=== PATIENT | female | born 1935 | race Caucasian/White ===

== ENCOUNTER 2019-06-18 11:23 | Emergency (ER) | payer MEDICARE, BC ==
--- NOTE | 2019-06-18 11:35 | EDM.PDOC ---
ED HPI GENERAL MEDICAL PROBLEM - General Chief Complaint: Syncope Stated Complaint: ER Time Seen by Provider: 06/18/19 11:35 - History of Present Illness INITIAL COMMENTS - FREE TEXT/NARRATIVE: Pt presents via ems for syncopal episode. Pt with hx of syncope in past has pacemaker in place for a fib. At this time PT ao x 3 with no complaints. Associated Symptoms: Reports: Syncope - Related Data Allergies Allergy/AdvReac Type Severity Reaction Status Date / Time No Known Allergies Allergy Verified 06/18/19 12:32 Home Meds: Home Meds . [No Known Home Meds] 06/18/19 [History] ED ROS GENERAL - Review of Systems Review Of Systems: See Below Constitutional: Reports: No Symptoms HEENT: Reports: No Symptoms Respiratory: Reports: No Symptoms Cardiovascular: Reports: No Symptoms Endocrine: Reports: No Symptoms GI/Abdominal: Reports: No Symptoms : Reports: No Symptoms Musculoskeletal: Reports: No Symptoms Skin: Reports: No Symptoms ED EXAM, GENERAL - Physical Exam Exam: See Below Free Text/Narrative:: ua noted leuk in urine with some wbc, low H&H unk pt baseline. ekg noted pased rhythem, pt with no chest pain, no carotid bruit. Exam Limited By: No Limitations General Appearance: Alert Ears: Normal External Exam, Normal Canal Nose: Normal Inspection, Normal Mucosa Throat/Mouth: Normal Inspection Head: Atraumatic, Normocephalic Neck: Normal Inspection, Supple, Non-Tender, Full Range of Motion Respiratory/Chest: No Respiratory Distress, Lungs Clear Cardiovascular: Normal Peripheral Pulses, Other (paced rhythem vent ) GI/Abdominal: Normal Bowel Sounds, Soft, Non-Tender, No Organomegaly, No Distention, No Abnormal Bruit, No Mass Extremities: Normal Inspection Neurological: Alert, Oriented Course - Vital Signs Last Recorded V/S: Last Vital Signs Temp 35.8 C 06/18/19 11:59 Pulse 80 06/18/19 11:59 Resp 16 06/18/19 11:59 BP 98/40 L 06/18/19 11:59 Pulse Ox 97 06/18/19 11:59 - Orders/Labs/Meds Orders: Active Orders 24 hr Category Date Time Status EKG 12 Lead [EKG Documentation Completion] [RC] STAT Care 06/18/19 11:36 Ordered CULTURE URINE [RM] Stat Lab 06/18/19 11:55 Received Sodium Chloride 0.9% [Saline Flush] Med 06/18/19 11:37 Ordered 10 ml FLUSH ASDIRECTED PRN Peripheral IV Insertion Adult [OM.PC] Routine Oth 06/18/19 11:37 Ordered Medication Orders Sodium Chloride (Saline Flush) 10 ml FLUSH ASDIRECTED PRN PRN Reason: Keep Vein Open Labs: Laboratory Tests 06/18/19 06/18/19 06/18/19 Range/Units 11:50 11:50 11:50 WBC 3.7 L (4.0-10.0) x10^3/uL RBC 2.31 L (4.00-5.50) x10^6/uL Hgb 9.0 L (12.0-16.0) g/dL Hct 27.2 L (33.0-47.0) % MCV 117.7 H (78.0-93.0) fL MCH 39.0 H (26.0-32.0) pg MCHC 33.1 (32.0-36.0) g/dL RDW Coeff of Amber 13.1 (10.0-15.0) % Plt Count 99 L (130-400) x10^3/uL Neut % (Auto) 41.6 L (50.0-80.0) % Lymph % (Auto) 31.9 (25.0-50.0) % [place] % (Auto) 20.2 H (2.0-11.0) % Eos % (Auto) 4.9 H (0.0-4.0) % Baso % (Auto) 1.4 H (0.2-1.2) % PT 24.5 H (10.0-12.8) SEC INR 2.2 (2.0-3.5) Sodium 144 (69-191) mmol/L Potassium 4.0 (1.5-9.9) mmol/L Chloride 105 (54-184) mmol/L Carbon Dioxide 29 (21-32) mmol/L Anion Gap 14.0 (10-20) mmol/L BUN 20 H (7-18) mg/dL Creatinine 1.1 H (0.55-1.02) mg/dL Est Cr Clr Drug Dosing 29.24 mL/min Estimated GFR (MDRD) 47 Glucose 106 (74-106) mg/dL Calcium 8.7 (8.5-10.1) mg/dL Urine Color (YELLOW) Urine Appearance (CLEAR) Urine pH (5.0-8.0) Ur Specific [place] Urine Protein (NEGATIVE) mg/dL Urine Glucose (UA) (NEGATIVE) mg/dL Urine Ketones (NEGATIVE) mg/dL Urine Occult Blood (NEGATIVE) Urine Nitrite (NEGATIVE) Urine Bilirubin (NEGATIVE) Urine Urobilinogen (0.2) EU/dL Ur Leukocyte Esterase (NEGATIVE) Urine RBC (NOT SEEN) /HPF Urine WBC (NOT SEEN) /HPF Ur Squamous Epith Cells (NEGATIVE) /HPF Urine Bacteria (NEGATIVE) /HPF Urine Mucus (NEGATIVE) /LPF 06/18/19 Range/Units 11:55 WBC (4.0-10.0) x10^3/uL RBC (4.00-5.50) x10^6/uL Hgb (12.0-16.0) g/dL Hct (33.0-47.0) % MCV (78.0-93.0) fL MCH (26.0-32.0) pg MCHC (32.0-36.0) g/dL RDW Coeff of Amber (10.0-15.0) % Plt Count (130-400) x10^3/uL Neut % (Auto) (50.0-80.0) % Lymph % (Auto) (25.0-50.0) % [place] % (Auto) (2.0-11.0) % Eos % (Auto) (0.0-4.0) % Baso % (Auto) (0.2-1.2) % PT (10.0-12.8) SEC INR (2.0-3.5) Sodium (69-191) mmol/L Potassium (1.5-9.9) mmol/L Chloride (54-184) mmol/L Carbon Dioxide (21-32) mmol/L Anion Gap (10-20) mmol/L BUN (7-18) mg/dL Creatinine (0.55-1.02) mg/dL Est Cr Clr Drug Dosing mL/min Estimated GFR (MDRD) Glucose (74-106) mg/dL Calcium (8.5-10.1) mg/dL Urine Color Yellow (YELLOW) Urine Appearance Slightly cloudy H (CLEAR) Urine pH 6.0 (5.0-8.0) Ur Specific [place] 1.010 Urine Protein Negative (NEGATIVE) mg/dL Urine Glucose (UA) Negative (NEGATIVE) mg/dL Urine Ketones Negative (NEGATIVE) mg/dL Urine Occult Blood Trace-intact H (NEGATIVE) Urine Nitrite Negative (NEGATIVE) Urine Bilirubin Negative (NEGATIVE) Urine Urobilinogen 0.2 (0.2) EU/dL Ur Leukocyte Esterase Trace H (NEGATIVE) Urine RBC 5-10 H (NOT SEEN) /HPF Urine WBC 5-10 H (NOT SEEN) /HPF Ur Squamous Epith Cells Few H (NEGATIVE) /HPF Urine Bacteria Few H (NEGATIVE) /HPF Urine Mucus Occasional H (NEGATIVE) /LPF Meds: Medications Generic Name Dose Route Start Last Admin Trade Name Freq PRN Reason Stop Dose Admin Sodium Chloride 10 ml 06/18/19 11:37 Saline Flush FLUSH ASDIRECTED PRN Keep Vein Open Departure - Departure Time of Disposition: 12:43 Disposition: Home, Self-Care 01 Condition: Good Clinical Impression: UTI (urinary tract infection) - Discharge Information Instructions: Urinary Tract Infection, Adult Referrals: Naeem Hurd MD [Primary Care Provider] - Forms: ED Department Discharge - My Orders Last 24 Hours: My Active Orders 06/18/19 11:36 EKG 12 Lead [EKG Documentation Completion] [RC] STAT 06/18/19 11:37 Sodium Chloride 0.9% [Saline Flush] 10 ml FLUSH ASDIRECTED PRN Peripheral IV Insertion Adult [OM.PC] Routine 06/18/19 11:55 CULTURE URINE [RM] Stat - Assessment/Plan Last 24 Hours: My Active Orders 06/18/19 11:36 EKG 12 Lead [EKG Documentation Completion] [RC] STAT 06/18/19 11:37 Sodium Chloride 0.9% [Saline Flush] 10 ml FLUSH ASDIRECTED PRN Peripheral IV Insertion Adult [OM.PC] Routine 06/18/19 11:55 CULTURE URINE [RM] Stat
[2019-06-18] MEDS ORDERED: Sodium Chloride 0.9% 10 ML Syringe FLUSH PRN (11:37)
== END 2019-06-18 12:51 | disposition home or self-care (01) ==
LOC: VM.ED 11:23
DX: N39.0 Urinary tract infection, site not specified (principal)
CPT/HCPCS: 36415; 80048; 81001; 85025; 85610; 87086; 93005; 99284-25

== ENCOUNTER 2020-07-14 12:27 | Emergency (ER) | payer MEDICARE, BC ==
[2020-07-14 13:40] LABS: CHLORIDE,CL 101 mmol/L (98-107); SODIUM,NA 137 mmol/L (136-145)
[2020-07-14 13:42] LABS: ANION GAP 15.3 mmol/L (10-20)
--- NOTE | 2020-07-14 14:39 | EDM.PDOC ---
ED HPI GENERAL MEDICAL PROBLEM - General Chief Complaint: General Stated Complaint: Weakness \ Covid Positive Time Seen by Provider: 07/14/20 12:50 Source of Information: Reports: Patient History Limitations: Reports: No Limitations - History of Present Illness INITIAL COMMENTS - FREE TEXT/NARRATIVE: Patient comes emergency department today from home by ambulance with complaints of weakness as well as Covid symptoms. This patient was diagnosed on 07/04/2020 with COVID-19. She has been quarantining at home with her who is also been positive for Covid. She has been complaining of weakness for about the past 2 weeks. It is slowly been getting worse over the past 2 weeks. She has had diarrhea the past couple of days but it is improved today. She has had no black or tarry stools. No hematuria dysuria or urinary sometimes. She really does not complain of any shortness of breath cough or difficulty breathing. She denies any pain in her chest pressure to her chest. She has had an intermittent fever. She has lost her taste and smell. She has drinks about 1 glass of water a day. She has not eaten for the past couple of days. She is very weak she has not fallen and hit her head. - Related Data Allergies Allergy/AdvReac Type Severity Reaction Status Date / Time No Known Allergies Allergy Verified 07/14/20 19:26 Home Meds: Home Meds Aspirin 81 mg PO DAILY 07/14/20 [History] Cholecalciferol (Vitamin D3) [Vitamin D3] 1,000 unit PO DAILY 07/14/20 [History] Escitalopram [Lexapro] 10 mg PO DAILY 07/14/20 [History] Furosemide [Lasix] 20 mg PO DAILY 07/14/20 [History] Warfarin Sodium [Jantoven] 5 mg PO ASDIRECTED 07/14/20 [History] atorvaSTATin [Lipitor] 40 mg PO DAILY 07/14/20 [History] Past Medical History Cardiovascular History: Reports: Pacemaker ED ROS GENERAL - Review of Systems Review Of Systems: See Below ED EXAM, GENERAL - Physical Exam Exam: See Below Exam Limited By: No Limitations General Appearance: Alert, WD/WN, No Apparent Distress Eye Exam: Bilateral Eye: EOMI Ears: Normal External Exam Nose: Normal Inspection Throat/Mouth: Normal Inspection, Normal Lips, Normal Voice Head: Atraumatic, Normocephalic Neck: Normal Inspection, Supple, Non-Tender, Full Range of Motion Respiratory/Chest: No Respiratory Distress, Lungs Clear, Normal Breath Sounds, Chest Non-Tender Cardiovascular: Normal Peripheral Pulses, Regular Rate, Rhythm Peripheral Pulses: 2+: Radial (L), Radial (R), Posterior Tibial (L), Posterior Tibial (R), Dorsalis Pedis (L), Dorsalis Pedis (R) GI/Abdominal: Normal Bowel Sounds, Soft, Non-Tender (Female) Exam: Deferred Rectal (Female) Exam: Deferred Back Exam: Normal Inspection, Full Range of Motion Extremities: Normal Inspection, Normal Range of Motion, Non-Tender, Normal Capillary Refill Neurological: Alert, Oriented, No Motor/Sensory Deficits Skin Exam: Dry, Intact, Cool, Pallor (He is very pale especially her conjunctive is very pale.) #1 Interpretation EKG Date: 07/14/20 Time: 12:55 Rhythm: A-Fib Rate (Beats/Min): 100 [place]: Normal P-Wave: Present QRS: Normal ST-T: Normal QT: Normal Comparison: No Change Course - Vital Signs Last Recorded V/S: Last Vital Signs Temp 100.3 F 07/14/20 14:58 Pulse 88 07/14/20 19:58 Resp 20 07/14/20 19:58 BP 118/68 07/14/20 19:58 Pulse Ox 98 07/14/20 19:38 - Orders/Labs/Meds Orders: Active Orders 24 hr Category Date Time Status EKG Documentation Completion [RC] STAT Care 07/14/20 12:35 Active CULTURE BLOOD [BC] Stat Lab 07/14/20 12:45 Received CULTURE BLOOD [BC] Stat Lab 07/14/20 12:55 Received FOLATE [REF] Stat Lab 07/14/20 12:45 Received RED BLOOD CELLS LP [BBK] Stat Lab 07/14/20 12:45 Results TRANSFERRIN [REF] Stat Lab 07/14/20 12:45 Received TROPONIN I [CHEM] Timed Lab 07/14/20 20:29 Ordered TYPE AND SCREEN [BBK] Stat Lab 07/14/20 12:45 Results VITAMIN B12 [REF] Stat Lab 07/14/20 12:45 Received Blood Culture x2 Reflex Set [OM.PC] Stat Oth 07/14/20 12:36 Ordered Blood Transfusion Reflex Orders [OM.PC] Routine Oth 07/14/20 13:14 Ordered Labs: Laboratory Tests 07/14/20 07/14/20 07/14/20 Range/Units 12:45 12:45 12:45 WBC 7.8 (4.0-10.0) x10^3/uL RBC 1.55 L (4.00-5.50) x10^6/uL Hgb 6.0 L* D (12.0-16.0) g/dL Hct 18.6 L (33.0-47.0) % MCV 120.0 H (78.0-93.0) fL MCH 38.7 H (26.0-32.0) pg MCHC 32.3 (32.0-36.0) g/dL RDW Coeff of Amber 15.9 H (10.0-15.0) % Plt Count 176 D (130-400) x10^3/uL Add Manual Diff Yes Neutrophils % (Manual) 84 H (50-80) % Lymphocytes % (Manual) 7 L (25-50) % Monocytes % (Manual) 8 (2-11) % Basophils % (Manual) 1 (0-1) % Platelet Estimate Adequate Poikilocytosis 1+ slight H Anisocytosis 1+ slight H Macrocytosis 3+ marked H Tear Drop Cells 1+ slight H Ovalocytes 1+ slight H Acanthocytes (Spur) 2+ moderate H Schistocytes Rare PT 51.8 H D (9.5-12.3) SEC INR 5.1 H* (2.0-3.5) APTT 52.0 H (25.6-32.8) SEC D-Dimer, Quantitative 0.30 (<=0.58) mg/LFEU Sodium 137 (136-145) mmol/L Potassium 3.3 L (3.5-5.1) mmol/L Chloride 101 (98-107) mmol/L Carbon Dioxide 24 (21-32) mmol/L Anion Gap 15.3 (10-20) mmol/L BUN 20 H (7-18) mg/dL Creatinine 1.2 H (0.55-1.02) mg/dL Est Cr Clr Drug Dosing TNP Estimated GFR (MDRD) 43 Glucose 117 H (74-106) mg/dL Lactic Acid (0.4-2.0) mmol/L Calcium 8.0 L (8.5-10.1) mg/dL Corrected Calcium 8.64 (8.5-10.1) mg/dL Magnesium 1.7 L (1.8-2.4) mg/dL Iron (50-170) ug/dL TIBC (250-450) ug/dL % Saturation (20.0-50.0) % Ferritin (8-252) ng/mL Total Bilirubin 1.0 (0.2-1.0) mg/dL AST 35 (15-37) U/L ALT 21 (14-59) U/L Alkaline Phosphatase 69 (46-116) U/L Lactate Dehydrogenase 309 H (81-234) U/L Troponin I 0.507 H* (<=0.056) ng/mL C-Reactive Protein 7.4 H (<=0.9) mg/dL Total Protein 6.8 (6.4-8.2) g/dL Albumin 3.2 L (3.4-5.0) g/dL Globulin 3.6 Albumin/Globulin Ratio 0.89 Ethyl Alcohol (0-3) mg/dL Blood Type Gel Antibody Screen Crossmatch 07/14/20 07/14/20 07/14/20 Range/Units 12:45 12:45 12:45 WBC (4.0-10.0) x10^3/uL RBC (4.00-5.50) x10^6/uL Hgb (12.0-16.0) g/dL Hct (33.0-47.0) % MCV (78.0-93.0) fL MCH (26.0-32.0) pg MCHC (32.0-36.0) g/dL RDW Coeff of Amber (10.0-15.0) % Plt Count (130-400) x10^3/uL Add Manual Diff Neutrophils % (Manual) (50-80) % Lymphocytes % (Manual) (25-50) % Monocytes % (Manual) (2-11) % Basophils % (Manual) (0-1) % Platelet Estimate Poikilocytosis Anisocytosis Macrocytosis Tear Drop Cells Ovalocytes Acanthocytes (Spur) Schistocytes PT (9.5-12.3) SEC INR (2.0-3.5) APTT (25.6-32.8) SEC D-Dimer, Quantitative (<=0.58) mg/LFEU Sodium (136-145) mmol/L Potassium (3.5-5.1) mmol/L Chloride (98-107) mmol/L Carbon Dioxide (21-32) mmol/L Anion Gap (10-20) mmol/L BUN (7-18) mg/dL Creatinine (0.55-1.02) mg/dL Est Cr Clr Drug Dosing Estimated GFR (MDRD) Glucose (74-106) mg/dL Lactic Acid 1.3 (0.4-2.0) mmol/L Calcium (8.5-10.1) mg/dL Corrected Calcium (8.5-10.1) mg/dL Magnesium (1.8-2.4) mg/dL Iron (50-170) ug/dL TIBC (250-450) ug/dL % Saturation (20.0-50.0) % Ferritin 871 H (8-252) ng/mL Total Bilirubin (0.2-1.0) mg/dL AST (15-37) U/L ALT (14-59) U/L Alkaline Phosphatase (46-116) U/L Lactate Dehydrogenase (81-234) U/L Troponin I (<=0.056) ng/mL C-Reactive Protein (<=0.9) mg/dL Total Protein (6.4-8.2) g/dL Albumin (3.4-5.0) g/dL Globulin Albumin/Globulin Ratio Ethyl Alcohol (0-3) mg/dL Blood Type O POSITIVE Gel Antibody Screen Negative Crossmatch See Detail 07/14/20 07/14/20 07/14/20 Range/Units 12:45 12:45 16:30 WBC (4.0-10.0) x10^3/uL RBC (4.00-5.50) x10^6/uL Hgb (12.0-16.0) g/dL Hct (33.0-47.0) % MCV (78.0-93.0) fL MCH (26.0-32.0) pg MCHC (32.0-36.0) g/dL RDW Coeff of Amber (10.0-15.0) % Plt Count (130-400) x10^3/uL Add Manual Diff Neutrophils % (Manual) (50-80) % Lymphocytes % (Manual) (25-50) % Monocytes % (Manual) (2-11) % Basophils % (Manual) (0-1) % Platelet Estimate Poikilocytosis Anisocytosis Macrocytosis Tear Drop Cells Ovalocytes Acanthocytes (Spur) Schistocytes PT (9.5-12.3) SEC INR (2.0-3.5) APTT (25.6-32.8) SEC D-Dimer, Quantitative (<=0.58) mg/LFEU Sodium (136-145) mmol/L Potassium (3.5-5.1) mmol/L Chloride (98-107) mmol/L Carbon Dioxide (21-32) mmol/L Anion Gap (10-20) mmol/L BUN (7-18) mg/dL Creatinine (0.55-1.02) mg/dL Est Cr Clr Drug Dosing Estimated GFR (MDRD) Glucose (74-106) mg/dL Lactic Acid (0.4-2.0) mmol/L Calcium (8.5-10.1) mg/dL Corrected Calcium (8.5-10.1) mg/dL Magnesium (1.8-2.4) mg/dL Iron 41 L (50-170) ug/dL TIBC 202 L (250-450) ug/dL % Saturation 20.3 (20.0-50.0) % Ferritin (8-252) ng/mL Total Bilirubin (0.2-1.0) mg/dL AST (15-37) U/L ALT (14-59) U/L Alkaline Phosphatase (46-116) U/L Lactate Dehydrogenase (81-234) U/L Troponin I 2.571 H* (<=0.056) ng/mL C-Reactive Protein (<=0.9) mg/dL Total Protein (6.4-8.2) g/dL Albumin (3.4-5.0) g/dL Globulin Albumin/Globulin Ratio Ethyl Alcohol < 3 (0-3) mg/dL Blood Type Gel Antibody Screen Crossmatch Meds: Medications Discontinued Medications Generic Name Dose Route Start Last Admin Trade Name Freq PRN Reason Stop Dose Admin Pantoprazole Sodium 80 mg 07/14/20 18:09 07/14/20 18:39 Protonix Iv IVPUSH 07/14/20 18:10 80 mg ONETIME ONE Administration - Re-Assessments/Exams Free Text/Narrative Re-Assessment/Exam: 07/14/20 She does requiring about 2 L of oxygen to keep her oxygen saturation above 92%. She is about 85 to 86% percent on room air. Her blood pressure is a little bit labile at about 100 systolically. LR was initiated 250 mill bolus and then 125 an hour. Her hemoglobin came back at 6.0. With interestingly her MCV and MCH is actually high. She was typed and screened for 2 units and 1 unit was initiated. She is not a patient typically of here and she is a patient of a independent clinic in [place]. She does relate that she has a history of anemia but typically her hemoglobin is 9-10. She denies any black or tarry stools. Not have any chest pain although her troponin is 0.507. We will repeat her troponin in the next 4 hours to evaluate if this is just cardiac strain or if there is truly some type of cardiac event happening. Her INR is 5.1 which is supratherapeutic. Her creatinine is 1.2. The patient rested comfortably over the next couple of hours and her repeat troponin surprisingly had a troponin of 2.571. She continues not to have any chest pain. I do not want to give her any aspirin with my concerns of a lower GI bleed with the anemia that she has with her hemoglobin. Given Protonix 80 mg IV bolus. I called and spoke with Dr. Barrios at [facility] in [facility] ER COURSE findings and concerns of ongoing covid as well as elevating Troponin no chest pain and severe anemia. He accepted the patient in transfer at this time with no new orders. I discussed the findings and the concerns with the patient. Her questions were answered she was comfortable with this plan and her questions are answered. Departure - Departure Time of Disposition: 18:34 Disposition: DC/Tfer to Acute Hospital 02 Clinical Impression: Elevated troponin, COVID-19 Anemia Qualifiers: Anemia type: unspecified type Qualified Code(s): D64.9 - Anemia, unspecified - Discharge Information Referrals: Naeem Hurd MD [Primary Care Provider] - Forms: ED Department Discharge, Interfacility Transfer [facility] Sepsis Event Note (ED) - Evaluation Sepsis Screening Result: Possible Sepsis Risk - Focused Exam Vital Signs: Vital Signs Temp Temp Pulse Resp BP Pulse Ox 07/14/20 19:58 88 20 118/68 07/14/20 19:38 94 26 H 119/77 98 07/14/20 16:56 89 16 120/62 07/14/20 15:41 102 H 16 102/57 L 07/14/20 15:19 100 20 109/52 L 07/14/20 15:04 89 18 103/56 L 07/14/20 14:58 100.3 F 90 16 104/57 L 97 07/14/20 14:04 97 29 H 112/61 07/14/20 13:34 94 26 H 103/56 L 07/14/20 12:40 100.9 F H 89 22 H 95/55 L 85 L - My Orders Last 24 Hours: My Active Orders 07/14/20 12:35 EKG Documentation Completion [RC] STAT 07/14/20 12:36 Blood Culture x2 Reflex Set [OM.PC] Stat 07/14/20 12:45 CULTURE BLOOD [BC] Stat FOLATE [REF] Stat RED BLOOD CELLS LP [BBK] Stat TRANSFERRIN [REF] Stat TYPE AND SCREEN [BBK] Stat VITAMIN B12 [REF] Stat 07/14/20 12:55 CULTURE BLOOD [BC] Stat 07/14/20 13:14 Blood Transfusion Reflex Orders [OM.PC] Routine 07/14/20 20:29 TROPONIN I [CHEM] Timed - Assessment/Plan Last 24 Hours: My Active Orders 07/14/20 12:35 EKG Documentation Completion [RC] STAT 07/14/20 12:36 Blood Culture x2 Reflex Set [OM.PC] Stat 07/14/20 12:45 CULTURE BLOOD [BC] Stat FOLATE [REF] Stat RED BLOOD CELLS LP [BBK] Stat TRANSFERRIN [REF] Stat TYPE AND SCREEN [BBK] Stat VITAMIN B12 [REF] Stat 07/14/20 12:55 CULTURE BLOOD [BC] Stat 07/14/20 13:14 Blood Transfusion Reflex Orders [OM.PC] Routine 07/14/20 20:29 TROPONIN I [CHEM] Timed
[2020-07-14] MEDS ORDERED: Pantoprazole 40 MG Vial IVPUSH ONE (18:09)
== END 2020-07-14 20:52 | disposition short-term general hospital (02) ==
LOC: VM.ED 12:27
DX: U07.1 COVID-19 (principal); D64.9 Anemia, unspecified; R79.89 Other specified abnormal findings of blood chemistry; Z79.82 Long term (current) use of aspirin; Z79.899 Other long term (current) drug therapy; Z79.01 Long term (current) use of anticoagulants
CPT/HCPCS: 36415; 36430; 80053; 80307; 82607; 82728; 82746; 83540; 83550; 83605; 83615; 83735; 84466; 84484; 85025; 85379; 85610; 85730; 86140; 86850; 86900; 86901; 86920; 86922; 87040; 93005; 93010; 96374; 99284; 99285; C9113; P9016

== ENCOUNTER 2020-07-25 11:29 | Inpatient (IN) | payer MEDICARE, BC ==
[2020-07-25] MEDS ORDERED: Acetaminophen 325 MG Tab PO PRN (14:09)
[2020-07-25] MEDS: Omeprazole 20 MG Cap.CR PO SCH (16:22)
--- NOTE | 2020-07-25 16:36 | PCM.HP.2 ---
H&P History of Present Illness - General Date of Service: 07/25/20 Admit Problem/Dx: Admission Diagnosis/Problem Admission Diagnosis/Problem Non-ST elevation (NSTEMI) myocardial infarction Source of Information: Patient History Limitations: Reports: No Limitations - History of Present Illness Initial Comments - Free Text/Narative: Mrs. Kovacs is an 84 yo female with PMH of CAD, a-fib, hypertension, CHF, mitral regurgitation, pulmonary hypertension, tricuspid regurgitation, hyperlipidemia, and stage 3 CKD who is admitted to [facility] for strengthening prior to returning home after an acute hospitalization in [place] for severe anemia, NSTEMI, and COVID. She was hospitalized in [place] 07/14-07/25 for these diagnoses. She did have a GI consult and had an evaluation for the cause of her anemia to include EGD, colonoscopy, and pill cam without any specific cause for her blood loss. She did have non-erosive gastropathy that is felt to possibly be the cause and she was treated with omeprazole. Cardiology was consulted and the patient declined catheterization. She did have an echocardiogram that showed an EF of 35% with global hypokinesis and what was determined to be a thrombus on the end of her right pacer wire. Blood cultures were negative. She was continued on her warfarin and plans are to follow-up with cardiology for further cares. Upon arrival to the floor, she states she is weak but otherwise ok. She has not had any shortness of breath or lightheadedness. No chest pain. She is just tired and weak. She has not had any fever or chills. She states her appetite is good and she can taste and smell without any issues. No issues with voiding or bowel movements. She has not had any pain. - Related Data Allergies/Adverse Reactions: Allergies Allergy/AdvReac Type Severity Reaction Status Date / Time No Known Allergies Allergy Verified 07/14/20 19:26 Home Medications: Home Meds Acetaminophen [Tylenol] 325 mg PO Q4HR PRN 07/14/20 [History] Cholecalciferol (Vitamin D3) [Vitamin D3] 25 mcg PO DAILY 07/14/20 [History] Escitalopram [Lexapro] 10 mg PO DAILY 07/14/20 [History] Warfarin Sodium [Jantoven] 5 mg PO ASDIRECTED 07/14/20 [History] atorvaSTATin [Lipitor] 40 mg PO DAILY 07/14/20 [History] Aspirin [Aspirin EC] 81 mg PO DAILY 07/25/20 [History] Cyanocobalamin (Vitamin B-12) [Vitamin B-12] 1,000 mcg PO ASDIRECTED 07/25/20 [History] Ferrous Sulfate 325 mg PO DAILY 07/25/20 [History] Metoprolol Tartrate 37.5 mg PO BID 07/25/20 [History] Omeprazole 20 mg PO BIDAC 07/25/20 [History] Ramipril [Altace] 5 mg PO DAILY 07/25/20 [History] Warfarin [Coumadin] 2.5 mg PO ASDIRECTED 07/25/20 [History] Past Medical History HEENT History: Reports: None Cardiovascular History: Reports: Afib, CAD, Heart Failure, High Cholesterol, Hypertension, Pacemaker, Stents, Other (See Below) Other Cardiovascular History: mitral vave regurgitation; coronary atherosclerosis; tricuspid valve regurgitation; chronic combined systolic and diastolic heart failure Respiratory History: Reports: None Gastrointestinal History: Reports: Other (See Below) Other Gastrointestinal History: gastric ulcer Genitourinary History: Reports: Other (See Below) Other Genitourinary History: stage 3 CKD Musculoskeletal History: Reports: None Neurological History: Reports: None Psychiatric History: Reports: None Endocrine/Metabolic History: Reports: Other (See Below) Other Endocrine/Metabolic History: unspecified hyperlipidemia Hematologic History: Reports: Anemia Oncologic (Cancer) History: Reports: Breast - Infectious Disease History Infectious Disease History: Reports: Chicken Pox - Past Surgical History Cardiovascular Surgical History: Reports: Coronary Artery Bypass, Coronary Artery Stent, Pacer Other Cardiovascular Surgeries/Procedures: CABG GI Surgical History: Reports: Colonoscopy, EGD, Other (See Below) Other GI Surgeries/Procedures: Video capsule camera procedure Female Surgical History: Reports: Other (See Below) Other Female Surgeries/Procedures: malignant neoplasm of breast; left breast lumpectomy Social & Family History - Family History Family Medical History: No Pertinent Family History - Tobacco Use Tobacco Use Status *Q: Never Tobacco User - Caffeine Use Caffeine Use: Reports: Soda - Alcohol Use Alcohol Use History: No Alcohol Use in Last Twelve Months: No - Recreational Drug Use Recreational Drug Use: No - Living Situation & Occupation Living situation: Reports: , with Family Occupation: Retired H&P Review of Systems - Review of Systems: Review Of Systems: See Below General: Reports: Weakness, Fatigue. Denies: Fever, Chills HEENT: Reports: No Symptoms Pulmonary: Reports: No Symptoms Cardiovascular: Reports: No Symptoms Gastrointestinal: Reports: No Symptoms Genitourinary: Reports: No Symptoms Musculoskeletal: Reports: No Symptoms Skin: Reports: No Symptoms Psychiatric: Reports: No Symptoms Neurological: Reports: No Symptoms Hematologic/Lymphatic: Reports: No Symptoms Exam - Exam Exam: See Below - Vital Signs Vital Signs: Last Vital Signs Temp 36.6 C 07/25/20 14:35 Pulse 73 07/25/20 14:35 Resp 16 07/25/20 14:35 BP 114/51 L 07/25/20 14:35 Pulse Ox 93 L 07/25/20 14:35 Weight: 51.347 kg - Exam General: Alert, Oriented, Cooperative HEENT: Conjunctiva Clear, Mucosa Moist & [place], Posterior Pharynx Clear, Pupils Equal, Pupils Reactive Neck: Supple, Trachea Midline. No: Lymphadenopathy, Thyromegaly Lungs: Clear to Auscultation, Normal Respiratory Effort Cardiovascular: Regular Rate, Normal S1, Normal S2, Irregular Rhythm, Systolic Murmur GI/Abdominal Exam: Normal Bowel Sounds, Soft, Non-Tender, No Organomegaly, No Distention, No Mass Extremities: Normal Inspection, Normal Range of Motion, Non-Tender, No Pedal Edema, Normal Capillary Refill Peripheral Pulses: 2+: Radial (L), Radial (R) Skin: Warm, Dry, Intact Neuro Extensive - Mental Status: Alert, Oriented x3, Normal Mood/Affect, Normal Cognition Sepsis Event Note - Evaluation Sepsis Screening Result: No Definite Risk - Focused Exam Vital Signs: Vital Signs Temp Pulse Resp BP Pulse Ox 07/25/20 14:35 36.6 C 73 16 114/51 L 93 L - Problem List (1) Physical deconditioning SNOMED Code(s): 35561263760627 ICD Code: R53.81 - OTHER [place] Status: Acute Current Visit: Yes (2) Anemia SNOMED Code(s): 612067314 ICD Code: D64.9 - ANEMIA, UNSPECIFIED Status: Acute Current Visit: No Qualifiers: Anemia type: unspecified type Qualified Code(s): D64.9 - Anemia, unspec ified (3) COVID-19 SNOMED Code(s): 093724357 ICD Code: U07.1 - COVID-19 Status: Acute Current Visit: No (4) Thrombus SNOMED Code(s): 960387048, 42272719, 615997298, 098037937 ICD Code: I82.90 - ACUTE EMBOLISM AND THROMBOSIS OF UNSPECIFIED VEIN Status: Acute Current Visit: Yes (5) NSTEMI (non-ST elevated myocardial infarction) SNOMED Code(s): 05429687 ICD Code: I21.4 - NON-ST ELEVATION (NSTEMI) MYOCARDIAL INFARCTION Status: Acute Current Visit: Yes (6) Coronary artery disease SNOMED Code(s): 44985207 ICD Code: I25.10 - ATHSCL HEART DISEASE OF [place] CORONARY ARTERY W/O ANG PCTRS Status: Chronic Current Visit: Yes Qualifiers: Coronary Disease-Associated Artery/Lesion type: [place] artery [place] vs. transplanted heart: [place] heart Associated angina: without angina Qualified Code(s): I25.10 - Atherosclerotic heart disease of [place] coronary artery without angina pectoris (7) Heart failure SNOMED Code(s): 83874003 ICD Code: I50.9 - HEART FAILURE, UNSPECIFIED Status: Chronic Current Visit: Yes Qualifiers: Heart failure type: combined systolic and diastolic Heart failure chronicity: chronic Qualified Code(s): I50.42 - Chronic combined systolic (congestive) and diastolic (congestive) heart failure (8) Valvular heart disease SNOMED Code(s): 537818 ICD Code: I38 - ENDOCARDITIS, VALVE UNSPECIFIED Status: Chronic Current Visit: Yes Problem List Initiated/Reviewed/Updated: Yes Orders Last 24hrs: Active Orders 24 hr Category Date Time Status Admission Status [Patient Status] [ADT] Routine ADT 07/25/20 11:38 Active OT Evaluation and Treatment [CONS] Routine Cons 07/25/20 14:05 Active PT Evaluation and Treatment [CONS] Routine Cons 07/25/20 14:06 Active Regular Diet [DIET] Diet 07/25/20 Dinner Active CBC W/O DIFF,HEMOGRAM [HEME] Q3D Lab 07/26/20 07:00 Ordered CBC W/O DIFF,HEMOGRAM [HEME] Q3D Lab 07/29/20 07:00 Ordered CBC W/O DIFF,HEMOGRAM [HEME] Q3D Lab 08/01/20 07:00 Ordered CBC W/O DIFF,HEMOGRAM [HEME] Q3D Lab 08/04/20 07:00 Ordered CBC W/O DIFF,HEMOGRAM [HEME] Q3D Lab 08/07/20 07:00 Ordered CBC W/O DIFF,HEMOGRAM [HEME] Q3D Lab 08/10/20 07:00 Ordered CBC W/O DIFF,HEMOGRAM [HEME] Q3D Lab 08/13/20 07:00 Ordered INR,PT,PROTHROMBIN TIME [COAG] Routine Lab 07/27/20 05:00 Ordered Acetaminophen [TylenoL] Med 07/25/20 14:09 Active 650 mg PO Q4H PRN Cholecalciferol (Vitamin D3) [Vitamin D3] Med 07/26/20 08:00 Active 25 mcg PO DAILY Citalopram [Celexa] Med 07/26/20 08:00 Active 20 mg PO DAILY Metoprolol Tartrate [Lopressor] Med 07/25/20 20:00 Active 37.5 mg PO BID Omeprazole Med 07/25/20 17:00 Active 20 mg PO BIDAC Warfarin [Coumadin] Med 07/26/20 20:00 Active 2 mg PO [email or web address] Warfarin [Coumadin] Med 07/25/20 20:00 Active 5 mg PO [email or web address] atorvaSTATin [Lipitor] Med 07/25/20 20:00 Active 40 mg PO BEDTIME Code Status [Resuscitation Status] Routine Resus Stat 07/25/20 12:00 Ordered Medication Orders Acetaminophen (Tylenol) 650 mg PO Q4H PRN PRN Reason: Pain Atorvastatin Calcium (Lipitor) 40 mg PO BEDTIME [facility] Cholecalciferol (Vitamin D3) 25 mcg PO DAILY [facility] Citalopram Hydrobromide (Celexa) 20 mg PO DAILY [facility] Metoprolol Tartrate (Lopressor) 37.5 mg PO BID [facility] Omeprazole (Omeprazole) 20 mg PO BIDAC [facility] Last Admin: 07/25/20 16:22 Dose: 20 mg Documented by: PERI Warfarin Sodium (Coumadin) 5 mg PO [email or web address] [facility] Warfarin Sodium (Coumadin) 2 mg PO [email or web address] [facility] Assessment/Plan Comment:: 84 yo female admitted for strengthening prior to return home after acute hospitalization in [place] for NSTEMI secondary to acute anemia with hospitalization also complicated by COVID. #1 Physical deconditioning, multifactorial - PT and OT consults. - Anticipate she will progress well as long as her medical conditions remain stable. - Plan is to return home with her . #2 Anemia - No definitive cause identified despite extensive GI evaluation. - Continue omeprazole. - Hemoglobin has been downtrending again over the past few days. - Will recheck tomorrow and then determine timing of next check. - Transfusion threshold <8 given her cardiac history and recent events. #3 COVID-19 - She really did not have much trouble with this at all. - She is out of her window for isolation. - Will monitor for any secondary complications from this. #4 Pacemaker lead thrombus #5 NSTEMI #6 CAD #7 Chronic combined systolic and diastolic congestive heart failure #8 Valvular heart disease - Patient seems to have recovered well from her NSTEMI. - Currently asymptomatic for all of the above. - Continue medications per hospital discharge list. - INR ordered per d/c orders. - Cardiology follow-up to be scheduled outpatient. Patient is admitted to swing bed as above. Continue medications per hospital discharge list. Code status is full - discussed on admission. No indication for other VTE prophylaxis as she is on warfarin with recent INR of 1.9.
[2020-07-25] MEDS ORDERED: Enoxaparin 60 MG/0.6 ML Syringe SUBCUT SCH (20:00)
[2020-07-25] MEDS ORDERED: Metoprolol Tartrate 25 MG Tab PO SCH ×2 (20:00)
[2020-07-25] MEDS: Warfarin 5 MG Tab PO SCH (20:02)
[2020-07-25] MEDS: atorvaSTATin 40 MG Tab PO SCH (20:02)
[2020-07-25] MEDS: Metoprolol Tartrate 25 MG Tab PO SCH (20:05)
[2020-07-26] MEDS: Omeprazole 20 MG Cap.CR PO SCH ×2 (06:38→18:11)
[2020-07-26] MEDS ORDERED: CHOLECALCIFEROL 25 MCG PO SCH (08:00)
[2020-07-26] MEDS: Ferrous Sulfate 325 MG Tab PO SCH (09:01)
[2020-07-26] MEDS: Cholecalciferol (Vitamin D3) 25 MCG Tab PO SCH (09:01)
[2020-07-26] MEDS: Metoprolol Tartrate 25 MG Tab PO SCH ×2 (09:02→20:29)
[2020-07-26] MEDS: Aspirin 81 MG Tab.EC PO SCH (09:02)
[2020-07-26] MEDS: Citalopram 20 MG Tab PO SCH (09:02)
[2020-07-26] MEDS: Lisinopril 10 MG Tab PO SCH (09:02)
[2020-07-26] MEDS ORDERED: Warfarin 2 MG Tab PO SCH (20:00)
[2020-07-26] MEDS: atorvaSTATin 40 MG Tab PO SCH (20:29)
[2020-07-26] MEDS: Warfarin 2.5 MG Tab PO SCH (20:29)
[2020-07-27] MEDS: Omeprazole 20 MG Cap.CR PO SCH ×2 (06:20→19:50)
[2020-07-27] MEDS: Citalopram 20 MG Tab PO SCH (10:01)
[2020-07-27] MEDS: Ferrous Sulfate 325 MG Tab PO SCH (10:01)
[2020-07-27] MEDS: Metoprolol Tartrate 25 MG Tab PO SCH ×2 (10:01→19:51)
[2020-07-27] MEDS: Cholecalciferol (Vitamin D3) 25 MCG Tab PO SCH (10:02)
[2020-07-27] MEDS: Aspirin 81 MG Tab.EC PO SCH (10:02)
[2020-07-27] MEDS: Lisinopril 10 MG Tab PO SCH (10:02)
[2020-07-27] MEDS: Warfarin 5 MG Tab PO SCH (19:50)
[2020-07-27] MEDS: atorvaSTATin 40 MG Tab PO SCH (19:50)
[2020-07-28] MEDS: Omeprazole 20 MG Cap.CR PO SCH ×2 (06:26→16:41)
[2020-07-28] MEDS: Metoprolol Tartrate 25 MG Tab PO SCH ×2 (07:29→19:15)
[2020-07-28] MEDS: Citalopram 20 MG Tab PO SCH (07:30)
[2020-07-28] MEDS: Aspirin 81 MG Tab.EC PO SCH (07:30)
[2020-07-28] MEDS: Cholecalciferol (Vitamin D3) 25 MCG Tab PO SCH (07:30)
[2020-07-28] MEDS: Ferrous Sulfate 325 MG Tab PO SCH (07:30)
[2020-07-28] MEDS: Warfarin 2.5 MG Tab PO SCH (19:15)
[2020-07-28] MEDS: atorvaSTATin 40 MG Tab PO SCH (19:15)
[2020-07-29] MEDS: Omeprazole 20 MG Cap.CR PO SCH ×2 (06:35→17:05)
[2020-07-29] MEDS: Ferrous Sulfate 325 MG Tab PO SCH (07:48)
[2020-07-29] MEDS: Aspirin 81 MG Tab.EC PO SCH (07:48)
[2020-07-29] MEDS: Citalopram 20 MG Tab PO SCH (07:48)
[2020-07-29] MEDS: Cholecalciferol (Vitamin D3) 25 MCG Tab PO SCH (07:48)
[2020-07-29] MEDS: Metoprolol Tartrate 25 MG Tab PO SCH ×2 (07:49→20:15)
--- NOTE | 2020-07-29 10:01 | PCM.SN.2 ---
- Free Text/Narrative Note: Patient hemoglobin down to 7.8 today. She does not feel any different than she has. Still weak. No lightheadedness, chest pain, or shortness of breath. Stools have been normal in appearance. BP's better after decrease in metoprolol and holding lisinopril. Will recheck CBC at 2 pm. If hemoglobin still <8, will plan to transfuse 1 unit PRBC. Risks discussed. Patient is on board.
[2020-07-29] MEDS: Warfarin 5 MG Tab PO SCH (20:14)
[2020-07-29] MEDS: atorvaSTATin 40 MG Tab PO SCH (20:15)
[2020-07-30] MEDS: Omeprazole 20 MG Cap.CR PO SCH ×2 (07:49→17:01)
[2020-07-30] MEDS: Citalopram 20 MG Tab PO SCH (07:50)
[2020-07-30] MEDS: Aspirin 81 MG Tab.EC PO SCH (07:50)
[2020-07-30] MEDS: Cholecalciferol (Vitamin D3) 25 MCG Tab PO SCH (07:50)
[2020-07-30] MEDS: Ferrous Sulfate 325 MG Tab PO SCH (07:50)
[2020-07-30] MEDS: Metoprolol Tartrate 25 MG Tab PO SCH ×2 (07:50→19:39)
[2020-07-30] MEDS: atorvaSTATin 40 MG Tab PO SCH (19:38)
[2020-07-30] MEDS: Warfarin 2.5 MG Tab PO SCH (19:38)
[2020-07-31] MEDS: Omeprazole 20 MG Cap.CR PO SCH ×2 (06:12→17:31)
[2020-07-31] MEDS: Citalopram 20 MG Tab PO SCH (08:01)
[2020-07-31] MEDS: Cholecalciferol (Vitamin D3) 25 MCG Tab PO SCH (08:01)
[2020-07-31] MEDS: Aspirin 81 MG Tab.EC PO SCH (08:01)
[2020-07-31] MEDS: Metoprolol Tartrate 25 MG Tab PO SCH ×2 (08:01→20:58)
[2020-07-31] MEDS: Ferrous Sulfate 325 MG Tab PO SCH (08:01)
[2020-07-31] MEDS: atorvaSTATin 40 MG Tab PO SCH (20:58)
[2020-07-31] MEDS: Warfarin 2.5 MG Tab PO SCH (21:01)
[2020-08-01] MEDS: Omeprazole 20 MG Cap.CR PO SCH ×2 (06:19→16:52)
[2020-08-01] MEDS ORDERED: Lisinopril 2.5 MG Tab PO SCH (08:00)
[2020-08-01] MEDS: Metoprolol Tartrate 25 MG Tab PO SCH ×2 (08:40→20:13)
[2020-08-01] MEDS: Ferrous Sulfate 325 MG Tab PO SCH (08:41)
[2020-08-01] MEDS: Aspirin 81 MG Tab.EC PO SCH (08:41)
[2020-08-01] MEDS: Cholecalciferol (Vitamin D3) 25 MCG Tab PO SCH (08:41)
[2020-08-01] MEDS: Citalopram 20 MG Tab PO SCH (08:41)
[2020-08-01] MEDS: atorvaSTATin 40 MG Tab PO SCH (20:13)
[2020-08-01] MEDS: Warfarin 5 MG Tab PO SCH (20:13)
[2020-08-02] MEDS: Omeprazole 20 MG Cap.CR PO SCH ×2 (06:33→16:29)
[2020-08-02] MEDS: Citalopram 20 MG Tab PO SCH (07:58)
[2020-08-02] MEDS: Aspirin 81 MG Tab.EC PO SCH (07:58)
[2020-08-02] MEDS: Cholecalciferol (Vitamin D3) 25 MCG Tab PO SCH (07:58)
[2020-08-02] MEDS: Ferrous Sulfate 325 MG Tab PO SCH (07:58)
[2020-08-02] MEDS: Metoprolol Tartrate 25 MG Tab PO SCH ×2 (07:58→20:17)
[2020-08-02] MEDS: atorvaSTATin 40 MG Tab PO SCH (20:16)
[2020-08-02] MEDS: Warfarin 2.5 MG Tab PO SCH (20:16)
[2020-08-03] MEDS: Omeprazole 20 MG Cap.CR PO SCH ×2 (07:49→17:23)
[2020-08-03] MEDS: Cholecalciferol (Vitamin D3) 25 MCG Tab PO SCH (08:18)
[2020-08-03] MEDS: Ferrous Sulfate 325 MG Tab PO SCH (08:18)
[2020-08-03] MEDS: Aspirin 81 MG Tab.EC PO SCH (08:19)
[2020-08-03] MEDS: Metoprolol Tartrate 25 MG Tab PO SCH ×2 (08:19→19:45)
[2020-08-03] MEDS: Citalopram 20 MG Tab PO SCH (08:20)
[2020-08-03] MEDS: atorvaSTATin 40 MG Tab PO SCH (19:46)
[2020-08-03] MEDS: Warfarin 5 MG Tab PO SCH (19:46)
[2020-08-04] MEDS: Omeprazole 20 MG Cap.CR PO SCH ×2 (06:38→16:04)
[2020-08-04] MEDS: Ferrous Sulfate 325 MG Tab PO SCH (07:52)
[2020-08-04] MEDS: Citalopram 20 MG Tab PO SCH (07:52)
[2020-08-04] MEDS: Aspirin 81 MG Tab.EC PO SCH (07:52)
[2020-08-04] MEDS: Cholecalciferol (Vitamin D3) 25 MCG Tab PO SCH (07:53)
[2020-08-04] MEDS: Metoprolol Tartrate 25 MG Tab PO SCH ×2 (07:53→20:29)
[2020-08-04] MEDS: atorvaSTATin 40 MG Tab PO SCH (20:28)
[2020-08-04] MEDS: Warfarin 2.5 MG Tab PO SCH (20:28)
[2020-08-05] MEDS: Omeprazole 20 MG Cap.CR PO SCH ×2 (06:43→16:44)
[2020-08-05] MEDS: Citalopram 20 MG Tab PO SCH (09:04)
[2020-08-05] MEDS: Aspirin 81 MG Tab.EC PO SCH (09:04)
[2020-08-05] MEDS: Metoprolol Tartrate 25 MG Tab PO SCH ×2 (09:04→19:21)
[2020-08-05] MEDS: Cholecalciferol (Vitamin D3) 25 MCG Tab PO SCH (09:04)
[2020-08-05] MEDS: Ferrous Sulfate 325 MG Tab PO SCH (09:04)
[2020-08-05] MEDS: Warfarin 5 MG Tab PO SCH (19:20)
[2020-08-05] MEDS: atorvaSTATin 40 MG Tab PO SCH (19:20)
[2020-08-06] MEDS: Omeprazole 20 MG Cap.CR PO SCH ×3 (05:29→16:59)
[2020-08-06] MEDS: Aspirin 81 MG Tab.EC PO SCH (08:26)
[2020-08-06] MEDS: Ferrous Sulfate 325 MG Tab PO SCH (08:26)
[2020-08-06] MEDS: Citalopram 20 MG Tab PO SCH (08:26)
[2020-08-06] MEDS: Metoprolol Tartrate 25 MG Tab PO SCH ×2 (08:27→19:40)
[2020-08-06] MEDS: Cholecalciferol (Vitamin D3) 25 MCG Tab PO SCH (08:27)
[2020-08-06] MEDS: atorvaSTATin 40 MG Tab PO SCH (19:41)
[2020-08-06] MEDS: Warfarin 2.5 MG Tab PO SCH (19:41)
[2020-08-07] MEDS: Omeprazole 20 MG Cap.CR PO SCH ×2 (06:41→17:02)
[2020-08-07] MEDS: Citalopram 20 MG Tab PO SCH (08:46)
[2020-08-07] MEDS: Ferrous Sulfate 325 MG Tab PO SCH (08:47)
[2020-08-07] MEDS: Aspirin 81 MG Tab.EC PO SCH (08:47)
[2020-08-07] MEDS: Cholecalciferol (Vitamin D3) 25 MCG Tab PO SCH (08:47)
[2020-08-07] MEDS: Metoprolol Tartrate 25 MG Tab PO SCH ×2 (08:52→19:25)
[2020-08-07] MEDS: Warfarin 2.5 MG Tab PO SCH (19:25)
[2020-08-07] MEDS: atorvaSTATin 40 MG Tab PO SCH (19:25)
[2020-08-08] MEDS: Omeprazole 20 MG Cap.CR PO SCH ×2 (06:39→17:01)
[2020-08-08] MEDS: Citalopram 20 MG Tab PO SCH (07:31)
[2020-08-08] MEDS: Ferrous Sulfate 325 MG Tab PO SCH (07:31)
[2020-08-08] MEDS: Aspirin 81 MG Tab.EC PO SCH (07:31)
[2020-08-08] MEDS: Cholecalciferol (Vitamin D3) 25 MCG Tab PO SCH (07:31)
[2020-08-08] MEDS: Metoprolol Tartrate 25 MG Tab PO SCH ×2 (07:34→19:23)
[2020-08-08] MEDS: atorvaSTATin 40 MG Tab PO SCH (19:22)
[2020-08-08] MEDS: Warfarin 5 MG Tab PO SCH (19:23)
[2020-08-09] MEDS: Omeprazole 20 MG Cap.CR PO SCH ×2 (06:18→16:15)
[2020-08-09] MEDS: Aspirin 81 MG Tab.EC PO SCH (07:43)
[2020-08-09] MEDS: Cholecalciferol (Vitamin D3) 25 MCG Tab PO SCH (07:43)
[2020-08-09] MEDS: Ferrous Sulfate 325 MG Tab PO SCH (07:43)
[2020-08-09] MEDS: Citalopram 20 MG Tab PO SCH (07:43)
[2020-08-09] MEDS: Metoprolol Tartrate 25 MG Tab PO SCH ×2 (08:42→19:54)
[2020-08-09] MEDS: Warfarin 2.5 MG Tab PO SCH (19:54)
[2020-08-09] MEDS: atorvaSTATin 40 MG Tab PO SCH (19:54)
[2020-08-10] MEDS: Omeprazole 20 MG Cap.CR PO SCH ×2 (06:42→17:41)
[2020-08-10] MEDS: Aspirin 81 MG Tab.EC PO SCH (08:09)
[2020-08-10] MEDS: Metoprolol Tartrate 25 MG Tab PO SCH ×2 (08:09→19:16)
[2020-08-10] MEDS: Citalopram 20 MG Tab PO SCH (08:09)
[2020-08-10] MEDS: Ferrous Sulfate 325 MG Tab PO SCH (08:09)
[2020-08-10] MEDS: Cholecalciferol (Vitamin D3) 25 MCG Tab PO SCH (08:09)
[2020-08-10] MEDS: Warfarin 5 MG Tab PO SCH (19:16)
[2020-08-10] MEDS: atorvaSTATin 40 MG Tab PO SCH (19:16)
[2020-08-11] MEDS: Omeprazole 20 MG Cap.CR PO SCH (06:17)
[2020-08-11] MEDS: Cholecalciferol (Vitamin D3) 25 MCG Tab PO SCH (07:51)
[2020-08-11] MEDS: Metoprolol Tartrate 25 MG Tab PO SCH (07:51)
[2020-08-11] MEDS: Ferrous Sulfate 325 MG Tab PO SCH (07:51)
[2020-08-11] MEDS: Citalopram 20 MG Tab PO SCH (07:51)
[2020-08-11] MEDS: Aspirin 81 MG Tab.EC PO SCH (07:52)
--- NOTE | 2020-08-11 08:23 | PCM.DCSUM1 ---
Discharge Summary - Hospital Course Brief History: Mrs. Kovacs is an 84 yo female who was admitted to [facility] for strengthening after an admission to [place] for NSTEMI secondary to severe anemia (Hemoglobin 6). - Discharge Data Discharge Date: 08/11/20 Discharge Disposition: Home, Self-Care 01 Condition: Good - Referral to Home Health Primary Care Physician: Naeem Hurd MD - Discharge Diagnosis/Problem(s) (1) Physical deconditioning SNOMED Code(s): 19571094003622 ICD Code: R53.81 - OTHER [place] Status: Acute Current Visit: Yes (2) Anemia SNOMED Code(s): 073623396 ICD Code: D64.9 - ANEMIA, UNSPECIFIED Status: Acute Current Visit: No Qualifiers: Anemia type: unspecified type Qualified Code(s): D64.9 - Anemia, unspecified (3) COVID-19 SNOMED Code(s): 940593186 ICD Code: U07.1 - COVID-19 Status: Acute Current Visit: No (4) Thrombus SNOMED Code(s): 645950669, 93061819, 023776293, 004201358 ICD Code: I82.90 - ACUTE EMBOLISM AND THROMBOSIS OF UNSPECIFIED VEIN Status: Acute Current Visit: Yes (5) NSTEMI (non-ST elevated myocardial infarction) SNOMED Code(s): 13069893 ICD Code: I21.4 - NON-ST ELEVATION (NSTEMI) MYOCARDIAL INFARCTION Status: Acute Current Visit: Yes (6) Coronary artery disease SNOMED Code(s): 86727479 ICD Code: I25.10 - ATHSCL HEART DISEASE OF [place] CORONARY ARTERY W/O ANG PCTRS Status: Chronic Current Visit: Yes Qualifiers: Coronary Disease-Associated Artery/Lesion type: [place] artery [place] vs. transplanted heart: [place] heart Associated angina: without angina Qualified Code(s): I25.10 - Atherosclerotic heart disease of [place] coronary artery without angina pectoris (7) Heart failure SNOMED Code(s): 32784814 ICD Code: I50.9 - HEART FAILURE, UNSPECIFIED Status: Chronic Current Visit: Yes Qualifiers: Heart failure type: combined systolic and diastolic Heart failure chronicity: chronic Qualified Code(s): I50.42 - Chronic combined systolic (congestive) and diastolic (congestive) heart failure (8) Valvular heart disease SNOMED Code(s): 131534 ICD Code: I38 - ENDOCARDITIS, VALVE UNSPECIFIED Status: Chronic Current Visit: Yes - Patient Summary/Data Operative Procedure(s) Performed: none Complications: none Consults: Consultations 07/25/20 14:05 OT Evaluation and Treatment [CONS] Routine 07/25/20 14:06 PT Evaluation and Treatment [CONS] Routine Labs Pending at D/C: none Recommended Follow-up Testing/Procedures: CBC on Saturday, 08/15 Planned Operative Procedure(s) after DC: none Hospital Course: The patient was admitted and underwent therapies with PT and OT. She steadily progressed with therapy. She did have frequent low blood pressures initially upon admission; therefore, her lisinopril was discontinued and her metoprolol dose was decreased. Her blood pressures improved and stabilized. Her hemoglobin was monitored every 3 days. She did have a drop again initially and was given a transfusion of 1 unit PRBC. Hemoglobin since then has stabilized in the 8-9 range. While hospitalized in [place], she had an EGD, colonoscopy, and capsule endoscopy without an identified cause of her anemia. Her swing bed stay was otherwise uncomplicated. She will be discharged today to be admitted to assisted living in [place] and continue outpatient PT and OT there. - Patient Instructions Diet: Regular Diet as Tolerated Activity: As Tolerated - Discharge Plan *PRESCRIPTION DRUG MONITORING PROGRAM REVIEWED*: No *COPY OF PRESCRIPTION DRUG MONITORING REPORT IN PATIENT ANDREW: No Home Medications: Home Meds Cholecalciferol (Vitamin D3) [Vitamin D3] 25 mcg PO DAILY 07/14/20 [History] Escitalopram [Lexapro] 10 mg PO DAILY 07/14/20 [History] Warfarin Sodium [Jantoven] 5 mg PO MOWEFR 07/14/20 [History] atorvaSTATin [Lipitor] 40 mg PO DAILY 07/14/20 [History] Aspirin [Aspirin EC] 81 mg PO DAILY 07/25/20 [History] Cyanocobalamin (Vitamin B-12) [Vitamin B-12] 1,000 mcg PO Q28D 07/25/20 [History] Ferrous Sulfate 325 mg PO DAILY 07/25/20 [History] Omeprazole 20 mg PO BIDAC 07/25/20 [History] Warfarin [Coumadin] 2.5 mg PO SUTUTHSA 07/25/20 [History] Acetaminophen [Tylenol] 650 mg PO Q4H PRN tablet 08/11/20 [Rx] Metoprolol Tartrate [Lopressor] 12.5 mg PO BID tablet 08/11/20 [Rx] - Discharge Summary/Plan Comment DC Time >30 min.: No - General Info Date of Service: 08/11/20 Subjective Update: 84 yo female seen today for swing bed d/c. She denies any concerns today. She is excited about going to assisted living with her today. Slept well last night. Is still weak but stronger than when she was admitted. No chest pain, shortness of breath, or lightheadedness. ROS otherwise negative. - Review of Systems General: Reports: No Symptoms HEENT: Reports: No Symptoms Pulmonary: Reports: No Symptoms Cardiovascular: Reports: No Symptoms Gastrointestinal: Reports: No Symptoms Genitourinary: Reports: No Symptoms Musculoskeletal: Reports: No Symptoms Skin: Reports: No Symptoms Neurological: Reports: No Symptoms Psychiatric: Reports: No Symptoms - Patient Data Vitals - Most Recent: Last Vital Signs Temp 36.9 C 08/11/20 06:00 Pulse 81 08/11/20 07:51 Resp 16 08/11/20 06:00 BP 102/44 L 08/11/20 07:51 Pulse Ox 95 08/11/20 06:00 Weight - Most Recent: 51.573 kg I&O - Last 24 hours: Intake & Output 08/10/20 08/11/20 08/11/20 22:59 06:59 14:59 Intake Total 300 120 Balance 300 120 Med Orders - Current: Current Medications Acetaminophen (Tylenol) 650 mg PO Q4H PRN PRN Reason: Pain Last Admin: 07/31/20 06:11 Dose: 650 mg Documented by: Aspirin (Halfprin) 81 mg PO DAILY [facility] Last Admin: 08/11/20 07:52 Dose: 81 mg Documented by: Atorvastatin Calcium (Lipitor) 40 mg PO BEDTIME [facility] Last Admin: 08/10/20 19:16 Dose: 40 mg Documented by: Cholecalciferol (Vitamin D3) 25 mcg PO DAILY [facility] Last Admin: 08/11/20 07:51 Dose: 25 mcg Documented by: Citalopram Hydrobromide (Celexa) 20 mg PO DAILY [facility] Last Admin: 08/11/20 07:51 Dose: 20 mg Documented by: Ferrous Sulfate (Ferrous Sulfate) 325 mg PO DAILY [facility] Last Admin: 08/11/20 07:51 Dose: 325 mg Documented by: Metoprolol Tartrate (Lopressor) 12.5 mg PO BID [facility] Last Admin: 08/11/20 07:51 Dose: 12.5 mg Documented by: Omeprazole (Omeprazole) 20 mg PO BIDAC [facility] Last Admin: 08/11/20 06:17 Dose: 20 mg Documented by: Warfarin Sodium (Coumadin) 5 mg PO [email or web address] [facility] Last Admin: 08/10/20 19:16 Dose: 5 mg Documented by: Warfarin Sodium (Coumadin) 2.5 mg PO [email or web address] [facility] Last Admin: 08/09/20 19:54 Dose: 2.5 mg Documented by: Discontinued Medications Citalopram Hydrobromide (Celexa) 20 mg PO DAILY [facility] Enoxaparin Sodium (Lovenox) 60 mg SUBCUT Q12H [facility] Lisinopril (Prinivil) 10 mg PO DAILY [facility] Last Admin: 07/27/20 10:02 Dose: 10 mg Documented by: Lisinopril (Prinivil) 2.5 mg PO DAILY [facility] Last Admin: 08/01/20 08:40 Dose: Not Given Documented by: Metoprolol Tartrate (Lopressor) 25 mg PO BID [facility] Metoprolol Tartrate (Lopressor) 37.5 mg PO BID [facility] Metoprolol Tartrate (Lopressor) 25 mg PO BID [facility] Last Admin: 07/27/20 10:01 Dose: 25 mg Documented by: Non-Formulary Medication (Cholecalciferol (Vitamin D3) [Vitamin D3]) 25 mcg PO DAILY [facility] Warfarin Sodium (Coumadin) 2 mg PO [email or web address] [facility] - Exam General: Reports: Alert, Oriented, Cooperative, No Acute Distress HEENT: Reports: Mucous Membr. Moist/[place] Neck: Reports: Supple, Trachea Midline, No Thyromegaly. Denies: Lymphadenopathy Lungs: Reports: Clear to Auscultation, Normal Respiratory Effort Cardiovascular: Reports: Regular Rate, Regular Rhythm, No Murmurs GI/Abdominal Exam: Normal Bowel Sounds, Soft, Non-Tender, No Organomegaly, No Distention, No Mass Extremities: Non-Tender, No Pedal Edema, Normal Capillary Refill Skin: Reports: Warm, Dry, Intact Neurological: Reports: No New Focal Deficit
== END 2020-08-11 12:30 | disposition home or self-care (01) | DRG 947 ==
LOC: VM.MS 14:26
PROVIDERS: ADMIT Family Medicine; ATTEND Family Medicine
PROC: 30233N1 Transfusion of Nonautologous Red Blood Cells into Peripheral Vein, Percutaneous Approach (ICD-10-PCS; principal; 2020-07-29)
DX: R53.81 Other malaise (principal); U07.1 COVID-19; I21.4 Non-ST elevation (NSTEMI) myocardial infarction; I82.90 Acute embolism and thrombosis of unspecified vein; I50.42 Chronic combined systolic (congestive) and diastolic (congestive) heart failure; I38 Endocarditis, valve unspecified; I13.0 Hypertensive heart and chronic kidney disease with heart failure and stage 1 through stage 4 chronic kidney disease, or unspecified chronic kidney disease; D64.9 Anemia, unspecified; I25.10 Atherosclerotic heart disease of native coronary artery without angina pectoris; N18.30 Chronic kidney disease, stage 3 unspecified; I08.1 Rheumatic disorders of both mitral and tricuspid valves; E78.5 Hyperlipidemia, unspecified; I27.20 Pulmonary hypertension, unspecified; I48.91 Unspecified atrial fibrillation; E78.00 Pure hypercholesterolemia, unspecified; K25.9 Gastric ulcer, unspecified as acute or chronic, without hemorrhage or perforation; Z95.0 Presence of cardiac pacemaker; Z95.5 Presence of coronary angioplasty implant and graft; Z79.01 Long term (current) use of anticoagulants; Z79.82 Long term (current) use of aspirin; Z79.899 Other long term (current) drug therapy; Z95.1 Presence of aortocoronary bypass graft
CPT/HCPCS: 36415; 36430; 85018; 85025; 85027; 85610; 86850; 86900; 86901; 86920; 86922; 97110-GP; 97116-GP; 97161-GP; 97530-GP; A9270-GY; P9016